=== PATIENT | female | born 1935 | race Caucasian/White ===

== ENCOUNTER 2017-04-05 13:52 | Outpatient (CLI) | payer MEDICARE, BC ==
[~2017-04-05] VITALS: Ht 165.1 cm; Wt 82.0 kg
[~2017-04-05 13:52] MED LIST: /DEXA4TA OR; /WARF25TA OR; ACET65TA OR; BISOPROLOL PO; CALCCHW12 OR; DEMA100T OR; ENABLEX PO; FOSI10TA2 OR; FOSINOPRIL PO; GLIMEPIRIDE PO; INDAPAMIDE PO; LOZOL OR; MULTIVIT PO; PENT10CA OR; POTA20TA OR; PROCHLORPERAZINE PO; RANI300T OR; SPIR25TA2 OR; SYNT100T OR; SYNT75TA OR; SYNTHROID PO; VALT500T OR; VICO5TAB OR; VIT D 2000; VITAMIN PO; ZYPR5TAB OR; ZYPREXA OR; fosinopril PO; indapamide PO; synthroid PO; zyprexa PO
[2017-04-05] MEDS ORDERED: FUROSEMIDE 20 MG/2 ML VIAL (J1940) IV PRN (16:00)
[2017-04-05 17:25] VITALS: BP 118/57
[2017-04-05 17:45] VITALS: BP 114/60
== END 2017-04-06 00:52 | disposition home or self-care (01) ==
LOC: M OPCLIPED 13:52 → M MS5PR 13:55 → M OPCLIPED 04-06 00:52
PROVIDERS: ATTEND Internal Medicine
DX: D64.9 Anemia, unspecified (principal); Z88.0 Allergy status to penicillin; Z88.2 Allergy status to sulfonamides
CPT/HCPCS: 36415; 36430; 86850; 86900; 86901; 86920; J1940; P9016

== ENCOUNTER → 2017-04-12 | Outpatient (REF) | payer MEDICARE, BC ==
[2017-04-12 14:10] LABS: PERCENT SATURATION 6.2 % (13.2-37.4)
== END ==
LOC: M LAB REF 13:18
PROVIDERS: ATTEND Nurse Practitioner Family
DX: D50.9 Iron deficiency anemia, unspecified (principal)

== ENCOUNTER → 2017-04-13 | Outpatient (REF) | payer MEDICARE, BC ==
[2017-04-13 13:59] LABS: MEAN CORPUSCULAR HEMOGLOBIN 22.4 pg (27.0-33.0); MEAN CORPUSCULAR HGB CONC 28.9 g/dl (32.0-36.5); MEAN CORPUSCULAR VOLUME 77.7 fl (80.0-96.0); WHITE BLOOD COUNT 8.5 K/mm3 (4.0-10.0)
[2017-04-13 15:38] LABS: PERCENT SATURATION 6.6 % (13.2-37.4)
== END ==
LOC: M LAB REF 13:34
PROVIDERS: ATTEND Nurse Practitioner Family
DX: D64.9 Anemia, unspecified (principal); R53.1 Weakness